=== PATIENT | male | born 1990 | race Two or more races ===

== ENCOUNTER 2020-05-17 07:18 | Outpatient (CLI) | payer OTHER | END 2020-05-17 15:00 | disposition home or self-care (01) | LOC: LAB 07:18 | PROVIDERS: ATTEND Surgery | DX: K62.89 Other specified diseases of anus and rectum (principal); A63.0 Anogenital (venereal) warts; Z01.810 Encounter for preprocedural cardiovascular examination ==

== ENCOUNTER 2020-05-25 06:47 | Day surgery (SDC) | payer OTHER | END 2020-05-25 17:20 | disposition home or self-care (01) | LOC: CIR.AMB 06:47 | PROVIDERS: ATTEND Surgery | DX: A63.0 Anogenital (venereal) warts (principal); Z20.822 Contact with and (suspected) exposure to COVID-19 ==